=== PATIENT | female | born 1980 | race African-American/Black ===

== ENCOUNTER → 2018-09-02 | Outpatient (CLI) | payer OTHER | LOC: RAD 13:34 | DX: Z12.31 Encounter for screening mammogram for malignant neoplasm of breast (principal) ==

== ENCOUNTER → 2018-10-01 | Outpatient (CLI) | payer OTHER | LOC: ULTRA 16:09 | DX: I65.23 Occlusion and stenosis of bilateral carotid arteries (principal) ==

== ENCOUNTER → 2018-11-26 | Outpatient (CLI) | payer OTHER | LOC: CAT 15:08 | DX: R51 Headache (principal) ==

== ENCOUNTER → 2019-01-06 | Outpatient (CLI) | payer OTHER ==
--- NOTE | 2019-01-07 09:04 | 2DMMODE ---
[facility] [employer] [place] [address] 2 D/M-MODE ECHOCARDIOGRAM Name: GERMAN PRICEWILBERT Phan Room #: REG [facility]#: [id number] ������������� Admission: 01/06/19 ������������� Attend Phys: Peyman Helms MD Discharge: ��� ������������� ��� Date of : 76 Date of Service: 01/07/19 0904 �� Report #: [id number] �������� ��������������������������������������������[id number] THIS REPORT FOR: //name// APPROVED REPORT Study performed: 01/06/2019 14:43:44 EXAM: Comprehensive 2D, Doppler, and color-flow Echocardiogram Patient Location: Out-Patient Room #: Echo lab 2 Status: routine BSA: 2.02 HR: 76 bpm BP: 132/82 mmHg Rhythm: NSR Other Information Study Quality: Good Indications Hypertension/HDD 2D Dimensions RVDd: 35.26 mm IVSd: 9.78 (7-11mm) LVOT Diam: 18.55 (18-24mm) LVDd: 47.93 mm PWd: 11.16 (7-11mm) Ascending Ao: 26.96 (22-36mm) LVDs: 29.33 (25-40mm) Aortic Root: 25.39 mm IVC: 17.00 mm Volumes Left Atrial Volume (Systole) Single Plane 4CH: 52.23 mL Single Plane 2CH: 35.55 mL LA ESV Index: 24.00 mL/m2 Aortic Valve AoV Peak Gilbert.: 1.26 m/s AO Peak Gr.: 6.36 mmHg LVOT Max P.13 mmHg LVOT Max V: 1.13 m/s CASE Vmax: 2.43 cm2 Mitral Valve E/A Ratio: 1.3 MV Decel. Time: 172.34 ms MV E Max Gilbert.: 0.65 m/s [facility] [email or web address] [address] 2 D/M-MODE ECHOCARDIOGRAM Name: JOHN PRICE Room #: [facility]#: [id number] ������������� Admission: 01/06/19 ������������� Attend Phys: Peyman Helms MD Discharge: ��� ������������� ��� Date of : 76 Date of Service: 01/07/19 0904 �� Report #: [id number] �������� ��������������������������������������������[id number] MV A Gilbert.: 0.52 m/s MV PHT: 49.98 ms IVRT: 106.11 ms Pulmonary Valve PV Peak Gilbert.: 1.13 m/s PV Peak Gr.: 5.10 mmHg Pulmonary Vein P Vein S: 0.56 m/s P Vein A: 0.27 m/s P Vein D: 0.50 m/s P Vein A Dur.: 110.7 msec P Vein S/D Ratio: 1.12 Tricuspid Valve TR Peak Gilbert.: 2.52 m/s TR Peak Gr.: 25.43 mmHg PA Pressure: 30.00 mmHg Left Ventricle The left ventricle is normal size. There is normal LV segmental wall motion. There is normal left ventricular wall thickness. Left ventricular systolic function is normal. The left ventricular ejection fraction is within the normal range. LVEF is 55-60%. The left ventricular diastolic function is normal. Right Ventricle The right ventricle is normal size. The right ventricular systolic function is normal. Atria The left atrium size is normal. The right atrium size is normal. Aortic Valve The aortic valve is normal in structure. No aortic regurgitation is present. There is no aortic valvular stenosis. Mitral Valve The mitral valve is normal in structure. There is no mitral valve regurgitation noted. No evidence of mitral valve stenosis. Tricuspid Valve The tricuspid valve is normal in structure. There is trace tricuspid regurgitation. Estimated PAP 30 mmHg. There is no pulmonary hypertension. Pulmonic Valve [address] [address] 2 D/M-MODE ECHOCARDIOGRAM Name: JOHN PRICE Room #: REG [facility]#: [id number] ������������� Admission: 01/06/19 ������������� Attend Phys: Peyman Helms MD Discharge: ��� ������������� ��� Date of : 76 Date of Service: 01/07/19 0904 �� Report #: [id number] �������� ��������������������������������������������[id number] The pulmonary valve is normal in structure. There is no pulmonic valvular regurgitation. Great Vessels The aortic root is normal in size. IVC is normal in size and collapses >50% with inspiration. Pericardium There is no pericardial effusion. <Conclusion> The left ventricle is normal size. There is normal left ventricular wall thickness. Left ventricular systolic function is normal. The left ventricular diastolic function is normal. The right ventricle is normal size. The left atrium size is normal. The right atrium size is normal. The aortic valve is normal in structure. There is no mitral valve regurgitation noted. There is trace tricuspid regurgitation. Estimated PAP 30 mmHg. ��������������������������������������������� <ELECTRONICALLY SIGNED> ���������������������������������������� By: Peyman Helms MD ��������������������������������������������� 01/07/19903 3 3 Peyman Helms MD /INF
== END ==
LOC: CV 12-23 08:11
DX: I10 Essential (primary) hypertension (principal)

== ENCOUNTER → 2019-08-26 | Outpatient (CLI) | payer OTHER | LOC: RAD 02:21 | DX: Z12.31 Encounter for screening mammogram for malignant neoplasm of breast (principal) ==

== ENCOUNTER → 2021-01-24 | Outpatient (CLI) | payer OTHER | LOC: ULTRA 10:23 | PROVIDERS: ATTEND Family Medicine | DX: D11.0 Benign neoplasm of parotid gland (principal) ==

== ENCOUNTER → 2021-03-08 | Outpatient (CLI) | payer OTHER ==
--- NOTE | 2021-03-13 12:07 | PATH ---
[facility] [address] [place] [address] PATHOLOGY RPT PROCEDURE Name: JOHN STERN Room #: REG [facility].#: [id number] Admission: 03/08/21 Date of : 76 Discharge: Report #: [id number] Path Case #: [id number] Note [facility] Accession Number: [id number] TESTS RESULT FLAG UNITS REF RANGE LAB Clinician Provided Cytology Information No. of containers..01 Other (Miscellaneous) Source: 01 RT PAROTID MASS DIAGNOSIS: 02 RIGHT PAROTID MASS INCONCLUSIVE. THIN HYPOCELLULAR SMEAR(S). PLEASE REPEAT FOR FURTHER STUDY AND CONFIRMATION. RED BLOOD CELLS ARE PRESENT. THIS INTERPRETATION INCLUDES EVALUATION OF A CELL BLOCK. RARE NEUTROPHILS AND LYMPHOCYTES. NO SALIVARY GLAND TISSUE SAMPLED. Comment: Dr. Bessie Marshall has seen this case and concurs with my interpretation. Signed out by: 02 Magalis Jj MD, Pathologist NPI- [id number] Performed by: Rito Flores, Logistics Supply Officer ([facility]) Gross description: 01 15ML, CLEAR RED, 2FX 2AD /LCS 03/09/2021 1940 Local FLAG LEGEND: L-Low Normal,H-High Normal,LL-Alert Low,HH-Alert High <-Panic Low,>-Panic High,A-Abnormal,AA-Critical Abnormal Performed at: [address] [facility] [address] [place] [address] Kip Coulter MD, [address] [address] Magalis Jj MD, Specimen Comment: A courtesy copy of this report has been sent to [phone] Specimen Comment: Report sent to Performed at: [address], [place], [place] [id number] MD Kip Coulter MD Phone: [phone]
--- NOTE | 2021-03-13 12:07 | PATH ---
[facility] [address] [place] [address] PATHOLOGY RPT PROCEDURE Name: JOHN STERN Room #: REG [facility].#: [id number] Admission: 03/08/21 Date of : 76 Discharge: Report #: [id number] Path Case #: [id number] Note [facility] Accession Number: [id number] TESTS RESULT FLAG UNITS REF RANGE LAB Clinician Provided Cytology Information No. of containers..01 Other (Miscellaneous) Source: LT SUBMANDIBULAR DIAGNOSIS: 02 LEFT SUBMANDIBULAR NEGATIVE FOR MALIGNANT EPITHELIAL CELLS. THE SPECIMEN CONSISTS OF RARE COHESIVE DUCTAL EPITHELIAL CELL GROUPS, SCANT STROMAL FRAGMENTS AND ABUNDANT LYMPHOCYTES. THIS INTERPRETATION INCLUDES EVALUATION OF A CELL BLOCK. Comment: Examination shows smears with abundant lymphoid tangles and discohesive lymphocytes in the background. Rare ductal epithelial cells are identified. The differential diagnosis includes chronic sialadenitis or aspiration of a lymph node within the gland. Please note sample may not be entirely procurement representative; correlate clinically and follow-up as indicated. Dr. Bessie Marshall has seen this case and concurs with my interpretation. Pathologist ICD10: 02 K11.23 Signed out by: Magalis Jj MD, Pathologist NPI- [id number] Performed by: Rito Flores, Senior Systems Analyst ([facility]) Gross description: 01 15ML, PALE PINK, 2FX 2AD /LCS 03/09/20212 Local FLAG LEGEND: L-Low Normal,H-High Normal,LL-Alert Low,HH-Alert High <-Panic Low,>-Panic High,A-Abnormal,AA-Critical Abnormal Performed at: 01 [facility] [address] [place] [address] [address] [place] [address] Kip Coulter MD, [address] [facility] [address] Magalis Jj MD, Specimen Comment: A courtesy copy of this report has been sent to [phone] [address] PATHOLOGY RPT PROCEDURE Name: JOHN STERN Room #: REG [facility]#: [id number] Admission: 03/08/21 Date of : 76 Discharge: Report #: [id number] Path Case #: [id number] Specimen Comment: Report sent to Performed at: 01 [facility] [address] [facility] [address], [place], [place] [id number] MD Kip Coulter MD Phone: [phone]
== END | disposition home or self-care (01) ==
LOC: ULTRA 10:29
PROVIDERS: ATTEND Family Medicine
DX: K11.23 Chronic sialoadenitis (principal); R89.6 Abnormal cytological findings in specimens from other organs, systems and tissues; I88.9 Nonspecific lymphadenitis, unspecified

== ENCOUNTER → 2021-03-22 | Outpatient (CLI) | payer OTHER ==
--- NOTE | ~2021-03-22 | EKG ---
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
[2021-03-22 11:21] LABS: ABSOLUTE NEUTROPHILS 4.8 thou/uL (1.4-8.2); BASOPHILS 0.8 % (0.0-2.0); HEMATOCRIT 43.1 % (37.0-47.0); HEMOGLOBIN 14.6 gm/dL (12.0-15.0); LYMPHOCYTES 18.5 % (24.0-44.0); MCH 31.6 pg (26.0-34.0); MCHC 33.8 g/dL (28.0-37.0); MCV 93.7 fL (80.0-100.0); PLATELET COUNT 229 thou/uL (150-400); POLYS 68.7 % (36.0-66.0); RDW 13.7 % (10.5-14.5)
[2021-03-22 11:36] LABS: CREATININE 0.7 mg/dL (0.6-1.0); POTASSIUM 3.4 mmol/L (3.5-5.1); TOTAL BILIRUBIN 0.3 mg/dL (0.2-1.0); TOTAL PROTEIN 8.4 g/dL (6.4-8.2)
--- NOTE | 2021-03-23 08:19 | EKG ---
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
== END ==
LOC: CV 10:32
PROVIDERS: ATTEND Otolaryngology Plastic Surgery within the Head & Neck
DX: K11.8 Other diseases of salivary glands (principal); I88.9 Nonspecific lymphadenitis, unspecified; I49.9 Cardiac arrhythmia, unspecified